=== PATIENT | female | born 1960 | race Caucasian/White ===

== ENCOUNTER 2017-02-18 11:06 | Emergency (ER) | payer OTHER ==
[~2017-02-18] VITALS: Ht 157.5 cm; Wt 60.3 kg
[2017-02-18 14:05] VITALS: BP 107/62
== END 2017-02-18 14:05 | disposition home or self-care (01) ==
LOC: ED 11:06
DX: G89.29 Other chronic pain (principal); M54.5 Low back pain; M79.7 Fibromyalgia; F11.20 Opioid dependence, uncomplicated; A18.4 Tuberculosis of skin and subcutaneous tissue
CPT/HCPCS: J1100; J1200; J1885; J2270

== ENCOUNTER 2017-03-12 18:37 | Emergency (ER) | payer SELFPAY ==
[2017-03-12 22:04] VITALS: BP 112/63
== END 2017-03-12 22:04 | disposition home or self-care (01) ==
LOC: ED 18:37
DX: G89.29 Other chronic pain (principal); M54.9 Dorsalgia, unspecified
CPT/HCPCS: J2270

== ENCOUNTER 2017-04-26 10:46 | Emergency (ER) | payer OTHER, MEDICAID ==
[~2017-04-26] VITALS: Ht 160 cm; Wt 60.8 kg
[2017-04-26 12:24] VITALS: BP 116/71
== END 2017-04-26 14:00 | disposition home or self-care (01) ==
LOC: ED 10:46
DX: R21 Rash and other nonspecific skin eruption (principal); G89.29 Other chronic pain; M54.9 Dorsalgia, unspecified
CPT/HCPCS: J7510; J7512

== ENCOUNTER 2017-06-13 02:42 | Emergency (ER) | payer OTHER, MEDICAID ==
[~2017-06-13] VITALS: Ht 157.5 cm; Wt 60.3 kg
[2017-06-13 03:10] VITALS: Ht 157.5 cm; Wt 60.3 kg
[2017-06-13 05:02] LABS: UA SPECIFIC GRAVITY <=1.005 (1.005-1.035); microscopic required? YES; urine erythrocyte TRACE (NEGATIVE)
[2017-06-13 08:43] VITALS: BP 118/64
== END 2017-06-13 08:43 | disposition home or self-care (01) ==
LOC: ED 02:42
PROVIDERS: Emergency Medicine
DX: G89.29 Other chronic pain (principal); M54.9 Dorsalgia, unspecified; M79.7 Fibromyalgia; Z88.2 Allergy status to sulfonamides; Z88.1 Allergy status to other antibiotic agents; Z88.8 Allergy status to other drugs, medicaments and biological substances
CPT/HCPCS: J1170; J1642; J1885; J2270; J2405